=== PATIENT | male | born 1970 | race Caucasian/White ===

== ENCOUNTER → 2021-01-26 08:34 | Outpatient (CLI) | payer OTHER, SELFPAY ==
[2021-01-26] MEDS: COVID-19 VACC #1, MRNA(MOD) 100 MCG/0.5 ML VIAL IM (08:49)
== END ==
PROVIDERS: Visit Provider Internal Medicine
DX: Z23 Encounter for immunization (principal)
CPT/HCPCS: 0011A; 91301

== ENCOUNTER → 2021-02-23 08:37 | Outpatient (CLI) | payer OTHER, SELFPAY ==
[2021-02-23] MEDS: COVID-19 VACC #1, MRNA(MOD) 100 MCG/0.5 ML VIAL IM (08:44)
== END ==
PROVIDERS: Visit Provider Internal Medicine
DX: Z23 Encounter for immunization (principal)
CPT/HCPCS: 0011A; 91301

== ENCOUNTER 2022-11-19 14:04 | Emergency (ER) | payer OTHER, SELFPAY ==
[2022-11-19] VITALS (10 sets, daily range): BP systolic 118–135; BP diastolic 75–90; PULSE 59–63; RESP 12–24; TEMP 35.9; O2SAT 93–97
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
--- NOTE | 2022-11-19 14:08 | DI.CT.S_ITS ---
PROCEDURE: CT CERVICAL SPINE WO CON INDICATIONS: fall TECHNIQUE: Noncontrast 3 mm thick sections acquired from the skull base to the T4 level. Sagittal and coronal reformats were then constructed. For radiation dose reduction, the following was used: automated exposure control, adjustment of mA and/or kV according to patient size. COMPARISON: None. FINDINGS: Image quality: Excellent. Bones: No fractures or dislocations. Straightening of normal cervical lordosis is seen. Loss of disc height and degenerative endplate changes are noted at C4-5 through C6-7 levels with suggestion of broad-based disc bulge at C5-6 and C6-7 levels causing mild central canal stenosis and bilateral neural foraminal narrowing. Visualized superior ribs are intact. Soft tissues: Prevertebral soft tissues are normal in thickness. No paravertebral hematomas. No apical pneumothoraces. IMPRESSION: 1. No acute cervical spine fracture or dislocation. 2. Degenerative disc disease in mid to lower cervical spine as above. Dictated by: Amos Arthur M.D. on 11/19/2022 at 14:43 Approved by: Amos Arthur M.D. on 11/19/2022 at 14:46
--- NOTE | 2022-11-19 14:08 | DI.CT.S_ITS ---
PROCEDURE: CT CHEST ABD PEL W CON INDICATIONS: fall tender thoracic and lumbar TECHNIQUE: After the administration of intravenous contrast, 5 mm thick sections acquired from the lung apices to the symphysis. 2.5 mm thick coronal and sagittal reformats were acquired. Additional 7 mm thick coronal maximum intensity projection (MIP) reformats acquired through the lungs. Optional 10-minute delayed imaging may be performed from the kidneys to the bladder. For radiation dose reduction, the following was used: automated exposure control, adjustment of mA and/or kV according to patient size. COMPARISON: [facility], CR, XR CHEST 1V, 11/19/2022, 13:50. [facility], CR, XR PELVIS 1-2V, 11/19/2022, 13:50. FINDINGS: Image quality: Excellent. CHEST: Lungs: No pulmonary contusions or lacerations. No acute airspace opacities. Dependent atelectasis in posterior aspect of bilateral lung gooden are seen. 5 x 4 mm calcified granuloma is noted in anterior aspect of right lower lobe near right lung base series 5 image 266. Linear scarring/atelectasis in anterolateral aspect of right lung base is also seen. No pneumothorax or hemothorax. Central and peripheral airways appear patent and normal in caliber. Mediastinum: No mediastinal hematomas. Heart size is enlarged. No pericardial effusion. Thoracic aorta and pulmonary arteries demonstrate normal size and enhancement. No mediastinal or hilar adenopathy. Esophagus is normal in caliber. No hiatal hernia. Chest wall: No rib fractures. No subcutaneous emphysema. No axillary or supraclavicular adenopathy. Thyroid gland is within normal limits. ABDOMEN: Solid organs: Liver is normal in size and enhancement, without lacerations. Gallbladder is within normal limits Biliary system is non-dilated. Pancreas enhances normally, without transection. Spleen is normal in size and enhancement, without lacerations. No adrenal hematomas. Both kidneys enhance normally, without hydronephrosis or lacerations. Peritoneum and bowel: No free fluid or air. Unenhanced bowel loops demonstrate normal wall thickness and caliber. Nodes and vessels: No retroperitoneal or mesenteric adenopathy. Aorta and inferior vena cava are normal in size and enhancement. Miscellaneous: No ventral hernias. PELVIS: Genitourinary: Bladder wall thickness is normal. Miscellaneous: No inguinal hernias or adenopathy. Bones: Pelvic ring and hip joints appear intact. No vertebral compression fractures. IMPRESSION: 1. No acute solid organ injury is seen in chest, abdomen or pelvis. 2. No acute rib fracture. No acute pelvic fracture. No acute compression fracture is seen in thoracic or lumbar spine. 3. Cardiomegaly, no pericardial effusion. No mediastinal or hilar lymphadenopathy by size criteria. 4. Dependent atelectasis in posterior aspect of bilateral lung gooden. Calcified granuloma in right lower lobe as above. No focal infiltrate, pleural effusion or pneumothorax. Airway is patent. 5. No abnormal bowel wall thickening. No bowel obstruction. No free fluid or free air. Dictated by: Amos Arthur M.D. on 11/19/2022 at 14:46 Approved by: Amos Arthur M.D. on 11/19/2022 at 14:51
--- NOTE | 2022-11-19 14:09 | DI.RAD.S_ITS ---
PROCEDURE: XR PELVIS 1-2V INDICATIONS: fall tender right hip TECHNIQUE: 2 view(s) of the pelvis acquired. COMPARISON: None. FINDINGS: Bones: No fractures or dislocations. No suspicious bony lesions. Soft tissues: Visualized bowel gas pattern is normal. No suspicious soft tissue calcifications. IMPRESSION: Pelvic ring is intact. No acute pelvic fracture or dislocation. Dictated by: Amos Arthur M.D. on 11/19/2022 at 14:38 Approved by: Amos Arthur M.D. on 11/19/2022 at 14:39
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
[2022-11-19] MEDS: ONDANSETRON 4 MG/2 ML INJ IV (14:11)
[2022-11-19 14:26] LABS: Add Manual Diff / Slide Review NO; Basophils Absolute Auto 100 /uL (0-100); Basophils Percent Auto 0.8 % (0-2); Eosinophils Absolute Auto 100 /uL (0-450); Eosinophils Percent Auto 1.2 % (2-4); Hematocrit 42.7 % (41-53); Hemoglobin 15.2 g/dL (13.5-17.5); Lymphocytes Absolute Auto 2100 /uL (1100-4500); Lymphocytes Percent Auto 25.7 % (25-40); Mean Corpuscular HGB Conc 35.6 % (30-36); Mean Corpuscular Hemoglobin 31.2 PG (26-34); Mean Corpuscular Volume 87.7 fL (80-100); Monocytes Absolute Auto 600 /uL (0-900); Monocytes Percent Auto 7.3 % (3-14); Neutrophils Absolute Auto 5300 /uL (1500-7000); Platelet Count 271 X10^3/uL (150-400); Red Blood Cell Count 4.87 X10^6/uL (4.5-5.9); Red Cell Distribution Width 13.4 % (11.6-14.8); White Blood Cell Count 8.2 X10^3/uL (4.5-11.0)
[2022-11-19 14:37] LABS: Lactate (Lactic Acid) 1.1 mmol/L (0.7-2.1)
[2022-11-19 14:38] LABS: Alanine Aminotransferase 30 IU/L (<50); Albumin 4.2 g/dL (3.5-5.0); Albumin Globulin Ratio 1.4 (1.0-2.8); Alkaline Phosphatase 70 U/L (38-126); Aspartate Aminotransferase 28 IU/L (17-59); BUN Creatinine Ratio 16.3 (6-22); Bilirubin Total 0.8 mg/dL (0.2-1.3); Blood Urea Nitrogen 16 mg/dL (9-20); Calcium 8.6 mg/dL (8.4-10.2); Carbon Dioxide 24 mmol/L (22-32); Chloride 106 mmol/L (98-107); Estimated Glomerular Filt Rate > 60 mL/min (>60); Glucose 115 mg/dL (70-100); Potassium 4.3 mmol/L (3.4-5.1); Sodium 141 mmol/L (137-145); Total Protein 7.2 g/dL (6.3-8.2)
[2022-11-19 14:40] LABS: HEMOLYSIS 81 (0-50)
--- NOTE | 2022-11-19 14:56 | PC.NURSE ---
Addendum entered by Karena Vazquez R.N. 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 Original Note: This RN taking over care. Pt is A&O x 4 but with some slowness in recalling. Pt reporting substernal chest pain, some redness noted, mid and low back pain and right hip pain. Bilateral CMS intact. Pt reports hx of 3 concussion from football in youth but says, this feels worse. EKG called. Pt and mother at bedside. 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 RT in room now for EKG. Call light with in reach. Encouraged to use for needs.
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
[2022-11-19] MEDS: METOCLOPRAMIDE 10 MG/2 ML INJ IV (16:37)
== END 2022-11-19 18:07 | disposition home or self-care (01) ==
PROVIDERS: Emergency Provider Emergency Medicine
DX: S06.0X0A Concussion without loss of consciousness, initial encounter (principal); W17.89XA Other fall from one level to another, initial encounter
CPT/HCPCS: 36415; 70450; 71045; 71260; 72125; 72170; 74177; 80053; 83605; 85025; 93005; 93010; 96374; 96375; 99284; J2405; J2765; Q9967

== ENCOUNTER 2022-12-01 17:27 | Emergency (ER) | payer OTHER, SELFPAY ==
[2022-12-01] VITALS (8 sets, daily range): BP systolic 124–154; BP diastolic 76–94; PULSE 68–84; RESP 16–23; TEMP 36.6; O2SAT 94–97; BMI 34.8
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
[2022-12-01 18:32] LABS: Add Manual Diff / Slide Review NO; Basophils Absolute Auto 100 /uL (0-100); Basophils Percent Auto 0.6 % (0-2); Eosinophils Absolute Auto 100 /uL (0-450); Eosinophils Percent Auto 0.6 % (2-4); Hemoglobin 16.4 g/dL (13.5-17.5); Lymphocytes Absolute Auto 1800 /uL (1100-4500); Lymphocytes Percent Auto 16.6 % (25-40); Mean Corpuscular HGB Conc 35.6 % (30-36); Mean Corpuscular Hemoglobin 30.8 PG (26-34); Mean Corpuscular Volume 86.7 fL (80-100); Monocytes Absolute Auto 800 /uL (0-900); Monocytes Percent Auto 7.1 % (3-14); Neutrophils Absolute Auto 7900 /uL (1500-7000); Neutrophils Percent Auto 75.1 % (50-75); Platelet Count 314 X10^3/uL (150-400); Red Blood Cell Count 5.31 X10^6/uL (4.5-5.9); Red Cell Distribution Width 13.6 % (11.6-14.8); White Blood Cell Count 10.6 X10^3/uL (4.5-11.0)
[2022-12-01 18:41] LABS: INR 1.1 (0.9-1.3); Prothrombin Time 12.7 SECONDS (10.1-12.7)
[2022-12-01 18:44] LABS: PTT Partial Thromboplastin Tim 35 SECONDS (26-36)
[2022-12-01 18:45] LABS: Lactate (Lactic Acid) 0.7 mmol/L (0.7-2.1)
[2022-12-01 18:46] LABS: Alanine Aminotransferase 37 IU/L (<50); Albumin 4.7 g/dL (3.5-5.0); Albumin Globulin Ratio 1.3 (1.0-2.8); Alkaline Phosphatase 87 U/L (38-126); Aspartate Aminotransferase 27 IU/L (17-59); BUN Creatinine Ratio 12.7 (6-22); Bilirubin Total 0.8 mg/dL (0.2-1.3); Blood Urea Nitrogen 14 mg/dL (9-20); Calcium 9.4 mg/dL (8.4-10.2); Carbon Dioxide 28 mmol/L (22-32); Chloride 104 mmol/L (98-107); Creatine Kinase 118 U/L (55-170); Estimated Glomerular Filt Rate > 60 mL/min (>60); Ethanol (ETOH) < 10 mg/dL; Globulin 3.5 g/dL (1.7-4.1); Glucose 102 mg/dL (70-100); HEMOLYSIS < 15 (0-50); Lipase 42 U/L (23-300); Potassium 4.4 mmol/L (3.4-5.1); Sodium 142 mmol/L (137-145); Total Protein 8.2 g/dL (6.3-8.2)
[2022-12-01 18:49] LABS: UR Morphine/Opiate cutoff 300 Negative (Negative); Ur Creatinine Normal (Normal); Ur Specific Gravity Normal (Normal); Urine Amphetamines Negative (Negative); Urine Barbiturates Negative (Negative); Urine Benzodiazepines Negative (Negative); Urine Cocaine Negative (Negative); Urine MDMA Negative (Negative); Urine Methadone Negative (Negative); Urine Methamphetamines Negative (Negative); Urine Oxycodone Negative (Negative); Urine Phencyclidine Negative (Negative); Urine Tetrahydrocannabinol Negative (Negative); Urine Tricyclic Antidepressant Negative (Negative); Urine pH Normal (Normal)
[2022-12-01 18:56] LABS: Troponin I < 0.012 ng/mL (0.01-0.034)
[2022-12-01 19:01] LABS: CKMB % Relative Index 0.6 % (1.5-5.0); Creatine Kinase MB 0.76 ng/mL (<2.37)
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
[2022-12-01] MEDS: ONDANSETRON 4 MG ODT PREPACK 1 BOTTLE MISC (20:00)
== END 2022-12-01 20:11 | disposition home or self-care (01) ==
PROVIDERS: Emergency Medicine; Emergency Provider Emergency Medicine
DX: S06.0X0A Concussion without loss of consciousness, initial encounter (principal); R03.0 Elevated blood-pressure reading, without diagnosis of hypertension; V59.40XA Driver of pick-up truck or van injured in collision with unspecified motor vehicles in traffic accident, initial encounter
CPT/HCPCS: 36415; 70450; 71045; 72125; 72170; 80053; 80305; 80320; 81003; 82550; 82553; 82962; 83605; 83690; 84484; 85025; 85610; 85730; 93005; 99283; 99284